=== PATIENT | male | born 1955 ===

== ENCOUNTER 2024-08-09 05:10 | Day surgery (SDC) | payer OTHER ==
[2024-08-06 12:36] VITALS: BP 148/73
[~2024-08-09] VITALS: Ht 162.6 cm; Wt 89.8 kg
[~2024-08-09 05:10] MED LIST: BUSPIRONE HCL7.5 MG PO; CLONAZEPAM0.5 MG PO; COZAAR25 MG PO; LEVO-T25 MCG PO; METFORMIN HCL500 M3 PO; NORVASC2.5 M1 PO; PRAVASTATIN SOD10 MG PO
[2024-08-09] MEDS ORDERED: POVIDONE-IODINE 118 ML BOTT TOP ONE (07:23)
[2024-08-09] MEDS ORDERED: BUPIVACAINE HCL/MPF 0.5% 30ML VIAL ONE (07:23)
[2024-08-09] MEDS ORDERED: LIDOCAINE HCL 1%/EPINEPHRINE 20ML VIAL IJ ONE (07:23)
[2024-08-09] MEDS ORDERED: HEMOSTATIC MATRIX 1 KIT KIT TOP ONE (07:23)
[2024-08-09] MEDS ORDERED: PERCOCET 5-3251 EACH PO (08:02)
[2024-08-09] MEDS ORDERED: RECTICARE30 GM TOP (08:02)
== END 2024-08-09 12:00 | disposition home or self-care (01) ==
LOC: CIR.AMB 05:10
PROVIDERS: ATTEND Surgery
DX: K60.1 Chronic anal fissure (principal); K62.5 Hemorrhage of anus and rectum; K62.4 Stenosis of anus and rectum; Z88.0 Allergy status to penicillin; Z88.2 Allergy status to sulfonamides; Z88.6 Allergy status to analgesic agent